=== PATIENT | female | born 1975 | race Caucasian/White ===

== ENCOUNTER 2023-09-08 07:40 | Outpatient (CLI) | payer OTHER, SELFPAY | END 2023-09-08 07:41 | disposition home or self-care (01) | LOC: NFLDREF 09-11 10:07 | PROVIDERS: PCP Family Medicine; Referring Provider Family Medicine; Visit Provider Physician Assistant | DX: R23.2 Flushing (principal); Z13.220 Encounter for screening for lipoid disorders; Z13.228 Encounter for screening for other metabolic disorders | CPT/HCPCS: 80061; 82947; 83001; 84443 ==

== ENCOUNTER 2023-11-22 14:38 | Outpatient (CLI) | payer OTHER, SELFPAY ==
--- NOTE | 2023-11-22 14:40 | MM_ITS ---
Patient: DL RAO Facility:?[facility] Patient ID:?[id number] Site Patient ID:?[id number]. Site :?[id number] Study:?XRay-Breast Bilateral 3D W/CAD-11/22/2023 3:07:32 PM Ordering Physician:Liudmila November Final Report: BILATERAL SCREENING IMPLANT MAMMOGRAM WITH COMPUTER-AIDED DETECTION AND TOMOSYNTHESIS TECHNIQUE: CC, MLO and Implant displaced views were obtained. These mammographic images have been obtained using full-field digital technique. These mammographic images were interpreted with the benefit of computer-aided detection. Breast Tomosynthesis was used in this interpretation. COMPARISON FILM: 05/30/19, 08/09/18, 01/08/18. FINDINGS: There are scattered areas of fibroglandular density. IMPRESSION: There is no radiographic evidence for malignancy. ASSESSMENT: BI-RADS Category 2: Benign RECOMMENDATION: Routine screening mammogram in 1 year. A lay language report of this examination will be provided to the patient. Rudy Pastor M.D. Diagnostic Radiologist [email or web address] DSM/sp R& Transcribed: 12:40 p.m. SP/Dictated by: Rudy Pastor MD @ 11/24/2023 11:21:00 AM Signed by:Gino Pastor MD @11/24/2023 12:56:55 PM (Electronic Signature)
== END 2023-11-22 14:39 | disposition home or self-care (01) ==
LOC: MAMMO 14:39
PROVIDERS: PCP Family Medicine; Visit Provider Physician Assistant
DX: Z12.31 Encounter for screening mammogram for malignant neoplasm of breast (principal)
CPT/HCPCS: 77063; 77067